=== PATIENT | female | born 1980 | race Caucasian/White ===

== ENCOUNTER 2019-03-02 06:18 | Emergency (ER) | payer OTHER ==
[2019-03-02] MEDS ORDERED: LORazepam 2 MG/ML INJ IM STA (06:23)
[2019-03-02] MEDS ORDERED: ZIPRASIDONE 20 MG VIAL IM STA (06:23)
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
[2019-03-02 06:47] LABS: Appearance,Urine Cloudy (Clear); Bacteria,Urine Moderate /hpf; Bilirubin,Urine Negative (Negative); Blood,Urine Negative (Negative); Color,Urine Yellow; Glucose,Urine (UA) Negative (Negative); Hyaline Casts,Urine 4 /lpf (0-2); Ketones,Urine 1+ (Negative); Leukocyte Esterase,Urine Small (Negative); Mucus,Urine Many /hpf; Nitrite,Urine Positive (Negative); Protein,Urine 1+ (Negative); RBC,Urine 1 /hpf (0-5); Specific Gravity,Urine 1.039 (1.001-1.035); Squamous Epithelial Cell,Urine 2 /hpf (0-4); Urobilinogen,Urine <2.0 mg/dL (<2.0); WBC,Urine 3 /hpf (0-5)
[2019-03-02 07:02] LABS: Amphetamine Screen,Urine Detected (NotDetected); Barbiturate Screen,Urine Not Detected (NotDetected); Benzodiazepines Screen,Urine Detected (NotDetected); Cocaine Screen,Urine Detected (NotDetected); Methadone Screen, Urine Not Detected (NotDetected); Opiate Screen,Urine Not Detected (NotDetected); Oxycodone Screen, Urine Not Detected (NotDetected); Phencyclidine Screen,Urine Not Detected (NotDetected); Tricyclic Antidepressant,Urine Detected (NotDetected); Urn Cannabinoid Scrn Detected (NotDetected)
[2019-03-02 07:06] LABS: Basophils # (A) 0.1 k/uL (0-0.2); Basophils % (A) 1 %; Eosinophils # (A) 0.4 k/uL (0-0.7); Eosinophils % (A) 3 %; HCT 41.7 % (34.0-46.0); Lymphocytes # (A) 4.3 k/uL (1.0-4.8); Lymphocytes % (A) 37 %; MCH 32.6 pg (25.0-35.0); MCHC 33.5 g/dL (31.0-37.0); MCV 97.3 fL (80.0-100.0); Mean Platelet Volume 7.6; Monocytes # (A) 0.8 k/uL (0-1.0); Monocytes % (A) 7 %; Neutrophils # (A) 5.6 k/uL (1.3-7.7); Neutrophils % (A) 49 %; Platelet Count 344 k/uL (150-450); RBC 4.29 m/uL (3.80-5.40); RDW 12.9 % (11.5-15.5); WBC 11.5 k/uL (3.8-10.6)
[2019-03-02 07:35] LABS: ALT 16 U/L (4-34); AST 43 U/L (14-36); African American GFR (CKD) 90 (>60 ml/min/1.73 sqM); Albumin 4.4 g/dL (3.5-5.0); Alcohol <10 mg/dL; Alkaline Phosphatase 62 U/L (38-126); Anion Gap 14 mmol/L; Blood Urea Nitrogen 16 mg/dL (7-17); Calcium 9.4 mg/dL (8.4-10.2); Carbon Dioxide 22 mmol/L (22-30); Chloride 102 mmol/L (98-107); Glucose 122 mg/dL (74-99); Non-African American GFR(CKD) 78 (>60 ml/min/1.73 sqM); Sodium 138 mmol/L (137-145); Total Protein 7.5 g/dL (6.3-8.2)
[2019-03-02 07:44] LABS: Potassium 3.6 mmol/L (3.5-5.1)
[2019-03-02 07:51] VITALS: RESP 16
--- NOTE | 2019-03-02 07:55 | CT ---
EXAMINATION TYPE: CT brain wo con DATE OF EXAM: 03/02/2019 COMPARISON: NONE HISTORY: Altered mental status. Right periorbital contusion. CT DLP: 1070.4 mGycm. Automated Exposure Control for Dose Reduction was Utilized. TECHNIQUE: CT scan of the head is performed without contrast. FINDINGS: There is no acute intracranial hemorrhage, mass effect, or midline shift identified. The ventricles and sulci are within normal limits in size. The globes are intact and the visualized sin uses are clear. Globes are symmetric and intact. Lenses are in place. No measurable hematoma in the p eriorbital region. IMPRESSION: No acute intracranial hemorrhage, mass effect, or midline shift is seen.
[2019-03-02 12:48] VITALS: BP 115/74; PULSE 61; TEMP 97.7
== END 2019-03-02 12:48 | disposition home or self-care (01) ==
LOC: EC 06:18
DX: F19.959 Other psychoactive substance use, unspecified with psychoactive substance-induced psychotic disorder, unspecified (principal); Z79.891 Long term (current) use of opiate analgesic; Z88.8 Allergy status to other drugs, medicaments and biological substances; Z78.1 Physical restraint status
CPT/HCPCS: 36415; 80053; 85025; 81001; 80306; 70450; 99285; 96365; 96366 ×4; 96372 ×2; G0480; J2060; J0696; J3486; 80320

== ENCOUNTER 2020-08-26 15:11 | Emergency (ER) | payer OTHER ==
[2020-08-26 15:33] VITALS: TEMP 98
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
[2020-08-26] MEDS: BACITRACIN OINT 1 EACH PACKET TOPICAL ONE (17:41)
[2020-08-26 18:07] VITALS: BP 102/60; PULSE 82; RESP 16
== END 2020-08-26 17:50 | disposition home or self-care (01) ==
LOC: EC 15:11
DX: F19.950 Other psychoactive substance use, unspecified with psychoactive substance-induced psychotic disorder with delusions (principal); F17.200 Nicotine dependence, unspecified, uncomplicated; F32.9 Major depressive disorder, single episode, unspecified; F12.90 Cannabis use, unspecified, uncomplicated
CPT/HCPCS: 82075; 99284

== ENCOUNTER 2020-09-22 16:56 | Emergency (ER) | payer OTHER ==
[2020-09-22 17:33] VITALS: BP 116/57; PULSE 100; RESP 16; TEMP 99
[2020-09-22] MEDS ORDERED: KETOROLAC 15 MG/ML 1 ML VIAL IM STA (18:07)
[2020-09-22] MEDS ORDERED: AMOXIC-POT CLAV 875MG STARTER PACK 2 TAB BTL PO STA (18:07)
--- NOTE | 2020-09-22 18:48 | XR ---
EXAMINATION TYPE: XR lumbar spine 2 or 3V DATE OF EXAM: 09/22/2020 CLINICAL HISTORY: Pain after fall injury. TECHNIQUE: Frontal and lateral images of the lumbar spine are obtained. COMPARISON: None FINDINGS: There are 5 lumbar type vertebral bodies identified. There is slight grade 1 retrolisthesi s L3 and L4 with more prominent grade 1 anterolisthesis L4 on L5. Vertebral body heights are maintain ed. [id number] multilevel disc space narrowing with relative sparing of L3-L4 level. Facet arth ropathy lower lumbar levels. No acute displaced fracture. Overlying soft tissue is unremarkable. IMPRESSION: As above.
--- NOTE | 2020-09-22 18:55 | ED ---
General Adult HPI - General Chief complaint: Animal Bite Stated complaint: Dog bite Time Seen by Provider: 09/22/20 17:34 Source: patient, RN notes reviewed Mode of arrival: ambulatory Limitations: no limitations - History of Present Illness Initial comments: Patient is a 40-year-old female that comes in complaining of a dog bite to the left foot and lower back pain. She notes she was seen at [facility] yesterday for the dog bite was given Augmentin and an Augmentin prescription. She noted that the x-ray was negative for any bone involvement. Today her main complaint is low back pain with radiation down the left leg. She notes that with a dog bit her older foot admit her fall on her butt. Patient denied any saddle anesthesia bladder or bowel incontinence. She noted that she spoke to her doctor who said that she might need an MRI and told her to come to the ER. She was informed that MRIs to the ER are unlikely and less saddle anesthesia or bladder or bowel issues happened from an acute injury. Patient was in no apparent distress or pain while sitting up. She denied any chest pain shortness of breath headache nausea vomiting diarrhea constipation fever fatigue chills. - Related Data Home Medications Medication Instructions Recorded Confirmed Buprenorphine HCl/Naloxone HCl 1 film SL BID 03/02/19 09/22/20 [Suboxone 8 mg-2 mg Sl Film] Gabapentin 300 - 600 mg PO TID 09/22/20 09/22/20 Naproxen 500 mg PO BID 09/22/20 09/22/20 clonazePAM [KlonoPIN] 0.5 - 1 mg PO DAILY 09/22/20 09/22/20 Previous Rx's Medication Instructions Recorded predniSONE 50 mg PO DAILY #5 tab 09/22/20 Allergies Allergy/AdvReac Type Severity Reaction Status Date / Time haloperidol [From Haldol] AdvReac Rash/Hives Verified 09/22/20 18:18 Review of Systems ROS Statement: Those systems with pertinent positive or pertinent negative responses have been documented in the HPI. ROS Other: All systems not noted in ROS Statement are negative. Past Medical History Past Medical History: No Reported History History of Any Multi-Drug Resistant Organisms: None Reported Past Surgical History: No Surgical Hx Reported, Tubal Ligation Past Psychological History: Bipolar, Depression, Schizophrenia Smoking Status: Current every day smoker Past Alcohol Use History: Occasional Past Drug Use History: Marijuana General Exam Limitations: no limitations General appearance: alert, in no apparent distress Head exam: Present: atraumatic, normocephalic, normal inspection Eye exam: Present: normal appearance, PERRL, EOMI. Absent: scleral icterus, conjunctival injection, periorbital swelling Neck exam: Present: normal inspection Respiratory exam: Present: normal lung sounds bilaterally. Absent: respiratory distress, wheezes, rales, rhonchi, stridor Cardiovascular Exam: Present: regular rate, normal rhythm, normal heart sounds. Absent: systolic murmur, diastolic murmur, rubs, gallop, clicks Extremities exam: Present: normal inspection, full ROM, normal capillary refill, other (Left foot dog bite no signs or symptoms of infection, minimal bruising.). Absent: tenderness, pedal edema, joint swelling, calf tenderness Back exam: Present: normal inspection, tenderness (Over the left SI) Neurological exam: Present: alert, oriented X3 Psychiatric exam: Present: normal affect, normal mood Skin exam: Present: warm, dry, intact, normal color. Absent: rash Course Vital Signs 09/22/20 17:31 Temperature 99 F Pulse Rate 100 Respiratory 16 Rate Blood Pressure 116/57 O2 Sat by Pulse 96 Oximetry Medical Decision Making - Medical Decision Making 40-year-old female complaining of lower back pain. Was seen last night at [place] for dog bite to left foot. X-ray lumbar spine, 15 mg of Toradol ordered. X-rays negative for any acute fractures dislocations. Case discussed with Dr. Walsh, patient can discharge home with follow-up to primary care. - Radiology Data Radiology results: report reviewed, image reviewed Lumbar x-ray: There are 5 lumbar type vertebral bodies identified. There is slight grade 1 retrolisthesis L3 and L4 with more prominent grade 1 anterolisthesis L4 on L5. Vertebral body heights are maintained. Mild to moderate multilevel disc space narrowing with relative sparing of L3-L4 level. Facet arthropathy lower lumbar levels. No acute displaced fracture. Overlying soft tissues unremarkable. Disposition Clinical Impression: Dog bite, Lumbar strain, Sciatica Disposition: HOME SELF-CARE Instructions (If sedation given, give patient instructions): Animal Bite (ED) Additional Instructions: Please return to the Emergency Department if symptoms worsen or any other concerns. Follow-up with primary care in the next several days. Take antibiotics as prescribed until complete. Get prescription filled. Keep areas clean and dry as possible. Is patient prescribed a controlled substance at d/c from ED?: No Referrals: Simone Kohler DO [Primary Care Provider] - 1-2 days Time of Disposition: 18:55
== END 2020-09-22 19:05 | disposition home or self-care (01) ==
LOC: EC 16:56
DX: S39.012A Strain of muscle, fascia and tendon of lower back, initial encounter (principal); M54.42 Lumbago with sciatica, left side; S91.352A Open bite, left foot, initial encounter; F17.200 Nicotine dependence, unspecified, uncomplicated; F12.90 Cannabis use, unspecified, uncomplicated; Z79.1 Long term (current) use of non-steroidal anti-inflammatories (NSAID); Z79.52 Long term (current) use of systemic steroids; Z79.899 Other long term (current) drug therapy; Z88.8 Allergy status to other drugs, medicaments and biological substances; W54.0XXA Bitten by dog, initial encounter
CPT/HCPCS: 72100; 96372; 99283; J1885

== ENCOUNTER 2020-10-31 03:16 | Emergency (ER) | payer OTHER ==
[2020-10-31 03:22] VITALS: BP 115/77; PULSE 83; RESP 20; TEMP 98.3
[2020-10-31 03:59] LABS: Basophils % (A) 0 %; Eosinophils # (A) 0.1 k/uL (0-0.7); Eosinophils % (A) 1 %; HCT 44.3 % (34.0-46.0); HGB 14.5 gm/dL (11.4-16.0); Lymphocytes % (A) 15 %; MCH 32.7 pg (25.0-35.0); MCHC 32.8 g/dL (31.0-37.0); MCV 99.9 fL (80.0-100.0); Monocytes # (A) 0.6 k/uL (0-1.0); Monocytes % (A) 4 %; Neutrophils # (A) 10.1 k/uL (1.3-7.7); Neutrophils % (A) 78 %; Platelet Count 303 k/uL (150-450); RBC 4.44 m/uL (3.80-5.40); RDW 13.5 % (11.5-15.5); WBC 12.9 k/uL (3.8-10.6)
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
--- NOTE | 2020-10-31 04:12 | XR ---
EXAMINATION TYPE: XR chest 2V DATE OF EXAM: 10/31/2020 COMPARISON: NONE HISTORY: Chest pain TECHNIQUE: 2 views FINDINGS: Heart and mediastinum are normal. Lungs are clear. Diaphragm is normal. Bony thorax appears normal. IMPRESSION: Normal chest
[2020-10-31 04:17] LABS: ALT 13 U/L (4-34); AST 25 U/L (14-36); African American GFR (CKD) >90 (>60 ml/min/1.73 sqM); Albumin 4.3 g/dL (3.5-5.0); Alkaline Phosphatase 52 U/L (38-126); Anion Gap 7 mmol/L; Blood Urea Nitrogen 15 mg/dL (7-17); Calcium 9.3 mg/dL (8.4-10.2); Carbon Dioxide 23 mmol/L (22-30); Chloride 106 mmol/L (98-107); Glucose 91 mg/dL (74-99); Non-African American GFR(CKD) >90 (>60 ml/min/1.73 sqM); Sodium 136 mmol/L (137-145); Total Bilirubin 0.5 mg/dL (0.2-1.3); Total Protein 6.8 g/dL (6.3-8.2)
[2020-10-31 04:33] LABS: Appearance,Urine Cloudy (Clear); Bacteria,Urine Rare /hpf; Bilirubin,Urine Negative (Negative); Blood,Urine Negative (Negative); Color,Urine Yellow; Glucose,Urine (UA) Negative (Negative); Hyaline Casts,Urine 5 /lpf (0-2); Ketones,Urine 1+ (Negative); Leukocyte Esterase,Urine Negative (Negative); Mucus,Urine Many /hpf; Nitrite,Urine Negative (Negative); Protein,Urine 1+ (Negative); RBC,Urine 1 /hpf (0-5); Specific Gravity,Urine 1.038 (1.001-1.035); Squamous Epithelial Cell,Urine 9 /hpf (0-4); WBC,Urine <1 /hpf (0-5)
[2020-10-31 06:18] LABS: Amphetamine Screen,Urine Not Detected (NotDetected); Barbiturate Screen,Urine Not Detected (NotDetected); Benzodiazepines Screen,Urine Detected (NotDetected); Cocaine Screen,Urine Detected (NotDetected); Methadone Screen, Urine Not Detected (NotDetected); Opiate Screen,Urine Not Detected (NotDetected); Oxycodone Screen, Urine Not Detected (NotDetected); Phencyclidine Screen,Urine Not Detected (NotDetected); Tricyclic Antidepressant,Urine Not Detected (NotDetected); Urn Cannabinoid Scrn Detected (NotDetected)
== END 2020-10-31 07:00 | disposition home or self-care (01) ==
LOC: EC 03:16
DX: F41.9 Anxiety disorder, unspecified (principal); R07.89 Other chest pain; T74.21XA Adult sexual abuse, confirmed, initial encounter; J45.909 Unspecified asthma, uncomplicated; F31.9 Bipolar disorder, unspecified; F17.200 Nicotine dependence, unspecified, uncomplicated; F12.90 Cannabis use, unspecified, uncomplicated
CPT/HCPCS: 36415; 71046; 80053; 80306; 81001; 81025; 84484; 85025; 93005; 99285

== ENCOUNTER 2020-12-20 22:54 | Inpatient (IN) | payer MEDICAID, OTHER ==
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
[2020-12-21] MEDS ORDERED: ACETAMINOPHEN TAB 325 MG TAB PO STA (03:11)
[2020-12-21] MEDS ORDERED: LORATADINE 10 MG TAB PO STA (03:16)
[2020-12-21 05:39] LABS: Amphetamine Screen,Urine Not Detected (NotDetected); Barbiturate Screen,Urine Not Detected (NotDetected); Benzodiazepines Screen,Urine Detected (NotDetected); Cocaine Screen,Urine Detected (NotDetected); Methadone Screen, Urine Not Detected (NotDetected); Opiate Screen,Urine Not Detected (NotDetected); Oxycodone Screen, Urine Not Detected (NotDetected); Phencyclidine Screen,Urine Not Detected (NotDetected); Tricyclic Antidepressant,Urine Not Detected (NotDetected); Urn Cannabinoid Scrn Detected (NotDetected)
[2020-12-21] MEDS ORDERED: MAG HYDROX/AL HYDROX/SIMETH 30 ML CUP PO PRN (08:31)
[2020-12-21] MEDS ORDERED: LORazepam 1 MG TAB PO PRN (08:31)
[2020-12-21] MEDS ORDERED: LORazepam 2 MG/ML INJ IM PRN (08:34)
[2020-12-21] MEDS ORDERED: HALOPERIDOL LACTATE 5 MG/ML 1 ML VIAL IM PRN (08:34)
[2020-12-21] MEDS: NICOTINE 14MG/24HR PATCH TRANSDERM SCH (09:19)
[2020-12-21] MEDS: NAPROXEN 250 MG TAB PO SCH ×3 (09:19→20:58)
[2020-12-21] MEDS: haloperidoL 5 MG TAB PO PRN (09:19)
[2020-12-21] MEDS: clonazePAM 0.5 MG TAB PO SCH (09:19)
[2020-12-21] MEDS: GABAPENTIN 300 MG CAP PO SCH ×5 (09:19→22:18)
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
[2020-12-21] MEDS: ARIPiprazole 5 MG TAB PO SCH (14:56)
[2020-12-21] MEDS: traZODone HCL 50 MG TAB PO SCH (22:12)
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
[2020-12-22 06:20] LABS: Basophils # (A) 0.1 k/uL (0-0.2); Basophils % (A) 1 %; Eosinophils # (A) 0.4 k/uL (0-0.7); Eosinophils % (A) 5 %; Lymphocytes # (A) 3.5 k/uL (1.0-4.8); Lymphocytes % (A) 51 %; MCH 32.4 pg (25.0-35.0); MCHC 32.6 g/dL (31.0-37.0); MCV 99.3 fL (80.0-100.0); Mean Platelet Volume 6.8; Monocytes # (A) 0.4 k/uL (0-1.0); Monocytes % (A) 6 %; Neutrophils # (A) 2.5 k/uL (1.3-7.7); Neutrophils % (A) 36 %; Platelet Count 338 k/uL (150-450); RBC 4.03 m/uL (3.80-5.40); RDW 12.3 % (11.5-15.5)
[2020-12-22 06:31] LABS: ALT 12 U/L (4-34); AST 20 U/L (14-36); African American GFR (CKD) >90 (>60 ml/min/1.73 sqM); Albumin 3.5 g/dL (3.5-5.0); Alkaline Phosphatase 46 U/L (38-126); Anion Gap 7 mmol/L; Blood Urea Nitrogen 13 mg/dL (7-17); Calcium 9.1 mg/dL (8.4-10.2); Carbon Dioxide 24 mmol/L (22-30); Chloride 106 mmol/L (98-107); Glucose 88 mg/dL (74-99); Non-African American GFR(CKD) >90 (>60 ml/min/1.73 sqM); Potassium 4.2 mmol/L (3.5-5.1); Sodium 137 mmol/L (137-145); Total Bilirubin 0.3 mg/dL (0.2-1.3)
[2020-12-22] MEDS: NAPROXEN 250 MG TAB PO SCH ×3 (08:50→21:10)
[2020-12-22] MEDS: NICOTINE 14MG/24HR PATCH TRANSDERM SCH (08:50)
[2020-12-22] MEDS: ARIPiprazole 5 MG TAB PO SCH (08:50)
[2020-12-22] MEDS: clonazePAM 0.5 MG TAB PO SCH (08:53)
[2020-12-22] MEDS: GABAPENTIN 300 MG CAP PO SCH ×3 (08:54→21:10)
[2020-12-22] MEDS: LORATADINE 10 MG TAB PO PRN (12:03)
[2020-12-22] MEDS: haloperidoL 5 MG TAB PO PRN ×2 (12:11→20:48)
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
[2020-12-22 13:45] LABS: LDL Cholesterol,Calculated 75.6 mg/dL (0.0-131.0)
[2020-12-22] MEDS: MAGNESIUM HYDROXIDE 2,400 MG/10 ML CUP PO PRN (16:16)
[2020-12-22] MEDS: traZODone HCL 50 MG TAB PO SCH (21:37)
[2020-12-23] MEDS: NICOTINE 14MG/24HR PATCH TRANSDERM SCH (07:50)
[2020-12-23] MEDS: NAPROXEN 250 MG TAB PO SCH ×3 (08:39→20:58)
[2020-12-23] MEDS: ARIPiprazole 5 MG TAB PO SCH (08:40)
[2020-12-23] MEDS: GABAPENTIN 300 MG CAP PO SCH ×3 (08:40→20:58)
[2020-12-23] MEDS: clonazePAM 0.5 MG TAB PO SCH (08:40)
[2020-12-23] MEDS: DOCUSATE 100 MG CAP PO SCH (08:40)
[2020-12-23] MEDS: LORATADINE 10 MG TAB PO PRN (08:40)
[2020-12-23] MEDS: haloperidoL 5 MG TAB PO PRN ×2 (12:50→21:53)
--- NOTE | 2020-12-23 14:33 | P.PN ---
Progress Note - Text Progress Note Date: 12/23/20 Clinical Problems: Bipolar disorder current episode manic, opiate use disorder, alcohol use disorder, cocaine use disorder, cannabis use disorder, tobacco use Interim history: I reviewed the medical record, interviewed the patient and discussed her treatment and treatment plan during team meeting. She was again somatically preoccupied and complained of hip pain, congestion, tooth pain and urinary tract infection. She requested a prescription for antibiotic for tooth pain and the urinary tract infection. She is more irritable than on the last encounter. She complained that her needs are not being addressed on the unit and she expects to to meet with an interest on a daily basis. She does not believe this hospitalization is justified and feels that she is mistreated by the mental health system. She again minimizes circumstances that led to this hospitalization and denied that she threatened to kill her daughter's boyfriend or attempted suicide. Nursing reported that she broke a tooth without eating hard candy last night. Since her admission to unit she has posed no management problems and had no episodes of behavioral dyscontrol. She has been attending therapeutic groups and activities. She slept 7 hours last night. Mental status exam: She presented as a casually groomed middle-aged female who was pleasant on approach. She made eye contact and appeared to attend to the interview. She had a blunted facial expression. She had psychomotor retardation but no abnormal involuntary movements. Her speech was spontaneous with normal rate and rhythm. Her affect was irritable. She denied suicidal ideation and wishes. She denied homicidal ideation. She denied feeling hopeless, helpless or worthless. She ruminated about her medical problems but did not express clear ideas reference, paranoid ideation or delusions. Her thinking was concrete but his associations were organized and goal directed. She denied hallucinations did not appear to be responding to internal stimuli. Assessment: She is much less irritable, angry and restless and admission. I suspect that her presentation may be related to substance abuse issues. Plan: continue inpatient treatment. Safety precautions. Probate hearing scheduled for 12/27/2020. Continue Abilify 5 mg daily Klonopin 0.5 mg daily, Neurontin 600 mg 3 times a day, and Desyrel 150mg bedtime. Habitrol for smoking cessation. Urine for culture and sensitivity. Haldol and Ativan when necessary for agitation or aggression. Encourage continued participation in therapeutic groups and activities. Evaluate clinical status response to treatment daily basis.
[2020-12-23 16:02] LABS: Appearance,Urine Clear (Clear); Bilirubin,Urine Negative (Negative); Blood,Urine Negative (Negative); Color,Urine Light Yellow; Glucose,Urine (UA) Negative (Negative); Ketones,Urine Negative (Negative); Leukocyte Esterase,Urine Negative (Negative); Nitrite,Urine Negative (Negative); Protein,Urine Negative (Negative); Specific Gravity,Urine 1.014 (1.001-1.035); Urobilinogen,Urine <2.0 mg/dL (<2.0)
[2020-12-23] MEDS: traZODone HCL 50 MG TAB PO SCH (22:43)
[2020-12-24] MEDS: haloperidoL 5 MG TAB PO PRN (08:46)
[2020-12-24] MEDS: NICOTINE 14MG/24HR PATCH TRANSDERM SCH (08:46)
[2020-12-24] MEDS: GABAPENTIN 300 MG CAP PO SCH ×3 (08:46→21:54)
[2020-12-24] MEDS: NAPROXEN 250 MG TAB PO SCH (08:46)
[2020-12-24] MEDS: clonazePAM 0.5 MG TAB PO SCH (08:47)
[2020-12-24] MEDS: ARIPiprazole 5 MG TAB PO SCH (08:47)
[2020-12-24] MEDS: DOCUSATE 100 MG CAP PO SCH (08:47)
[2020-12-24] MEDS ORDERED: IBUPROFEN 800 MG TAB PO PRN (11:13)
[2020-12-24] MEDS ORDERED: IBUPROFEN 600 MG TAB PO PRN (13:09)
[2020-12-24] MEDS: ACETAMINOPHEN TAB 325 MG TAB PO PRN ×2 (15:47→21:57)
--- NOTE | 2020-12-24 16:46 | P.PN ---
Progress Note - Text Progress Note Date: 12/24/20 Clinical Problems: Bipolar disorder current episode manic, opiate use disorder, alcohol use disorder, cocaine use disorder, cannabis use disorder, tobacco use Interim history: I reviewed the medical record and interviewed the patient. She remains somatically preoccupied and complained of hip and back pain. She requested a wheelchair or walker. Requested additional medications for pain and agreed to Motrin alfredo her admission to unit she has posed no management problems and had no episodes of behavioral dyscontrol. She intermittently attends therapeutic groups and activities. She slept 7 hours last night. Her graft UA was negative for protein, blood and ketones. Mental status exam: She presented as a casually groomed middle-aged female who was pleasant on approach. She made eye contact and appeared to attend to the interview. She had a blunted facial expression. She had psychomotor retardation but no abnormal involuntary movements. Her speech was spontaneous with normal rate and rhythm. Her affect was not irritable. She denied suicidal ideation and wishes. She denied homicidal ideation. She denied feeling hopeless, helpless or worthless. She ruminated about her medical problems but did not express clear ideas reference, paranoid ideation or de lusions. Her thinking was concrete but his associations were organized and goal directed. She denied hallucinations did not appear to be responding to internal stimuli. Assessment: She is much less irritable, angry and restless and admission. She remains somatically preoccupied and is complaining of increasing pain symptoms. Plan: continue inpatient treatment. Safety precautions. Probate hearing scheduled for 12/27/2020. Continue Abilify 5 mg daily Klonopin 0.5 mg daily, Neurontin 600 mg 3 times a day, and Desyrel 150mg bedtime. Habitrol for smoking cessation. Continue naproxen Motrin 800 mg 3 times a day when necessary for pain. 5% lidocaine patch to lower back. Haldol and Ativan when necessary for agitation or aggression. Encourage continued participation in therapeutic grou ps and activities. Evaluate clinical status response to treatment daily basis.
[2020-12-24] MEDS: IBUPROFEN 600 MG TAB PO PRN (17:03)
[2020-12-24] MEDS: LORazepam 1 MG TAB PO PRN (19:59)
[2020-12-24] MEDS: traZODone HCL 50 MG TAB PO SCH (21:55)
[2020-12-25] MEDS: NICOTINE 14MG/24HR PATCH TRANSDERM SCH (08:00)
[2020-12-25] MEDS: ARIPiprazole 5 MG TAB PO SCH (08:01)
[2020-12-25] MEDS: GABAPENTIN 300 MG CAP PO SCH ×3 (08:01→20:21)
[2020-12-25] MEDS: clonazePAM 0.5 MG TAB PO SCH (08:01)
[2020-12-25] MEDS: DOCUSATE 100 MG CAP PO SCH (08:01)
[2020-12-25] MEDS: LIDOCAINE 5% PATCH TOPICAL SCH (08:02)
[2020-12-25] MEDS: IBUPROFEN 600 MG TAB PO PRN ×2 (08:35→16:19)
[2020-12-25] MEDS: ACETAMINOPHEN TAB 325 MG TAB PO PRN (11:47)
--- NOTE | 2020-12-25 15:13 | P.PN ---
Progress Note - Text Progress Note Date: 12/25/20 Clinical Problems: Bipolar disorder current episode manic, opiate use disorder severe, alcohol use disorder, cocaine use disorder, cannabis use disorder, tobacco use Interim history: I reviewed the medical record and interviewed the patient. She was less somatically preoccupied, irritable and demanding than on prior encounters. She continued playing of leg and hip pain but did not perseverate on being unable to walk, needing a wheelchair or needing opiate pain medications. We again discussed the need for her to reenroll with a Suboxone provider after she is discharged. She has posed no management problems and had no episodes of behavioral dyscontrol. She intermittently attends therapeutic groups and activities. She slept 7 hours last night. Mental status exam: She presented as a casually groomed middle-aged female who was pleasant on approach. She made eye contact and appeared to attend to the interview. She had a blunted facial expression. She had psychomotor retardation but no abnormal involuntary movements. Her speech was spontaneous with normal rate and rhythm. Her affect was not irritable. She denied suicidal ideation and wishes. She denied homicidal ideation. She denied feeling hopeless, helpless or worthless. She ruminated about her medical problems but did not express clear ideas reference, paranoid ideation or delusions. Her thinking was concrete but his associations were organized and goal directed. She denied hallucinations did not appear to be responding to internal stimuli. Assessment: She is much less irritable, angry and restless and admission. She is less somatically preoccupied. Plan: continue inpatient treatment. Safety precautions. Probate hearing scheduled for 12/27/2020. Continue Abilify 5 mg daily Klonopin 0.5 mg daily, Neurontin 600 mg 3 times a day, and Desyrel 150mg bedtime. Habitrol for smoking cessation. Continue naproxen Motrin 800 mg 3 times a day when necessary for pain. 5% lidocaine patch to lower back. Haldol and Ativan when necessary for agitation or aggression. Encourage continued participation in therapeutic groups and activities. Evaluate clinical status response to treatment daily basis.
[2020-12-25] MEDS: MAGNESIUM HYDROXIDE 2,400 MG/10 ML CUP PO PRN ×2 (16:18→21:11)
[2020-12-25] MEDS: haloperidoL 5 MG TAB PO PRN (16:26)
[2020-12-25] MEDS: traZODone HCL 50 MG TAB PO SCH (20:21)
[2020-12-25] MEDS: LORazepam 1 MG TAB PO PRN (20:21)
[2020-12-26 06:48] VITALS: RESP 20; TEMP 98.6
[2020-12-26] MEDS: LORATADINE 10 MG TAB PO PRN ×2 (07:53→21:30)
[2020-12-26] MEDS: ARIPiprazole 5 MG TAB PO SCH (07:53)
[2020-12-26] MEDS: DOCUSATE 100 MG CAP PO SCH (07:53)
[2020-12-26] MEDS: NICOTINE 14MG/24HR PATCH TRANSDERM SCH (07:53)
[2020-12-26] MEDS: ACETAMINOPHEN TAB 325 MG TAB PO PRN ×2 (07:55→15:43)
[2020-12-26] MEDS: GABAPENTIN 300 MG CAP PO SCH ×3 (08:34→21:31)
[2020-12-26] MEDS: clonazePAM 0.5 MG TAB PO SCH (08:34)
[2020-12-26] MEDS: LIDOCAINE 5% PATCH TOPICAL SCH (08:36)
[2020-12-26] MEDS ORDERED: ARIPiprazole 5 MG TAB PO ONE (10:00)
[2020-12-26] MEDS: IBUPROFEN 600 MG TAB PO PRN ×2 (10:13→19:01)
--- NOTE | 2020-12-26 10:17 | P.PN ---
Progress Note - Text Progress Note Date: 12/26/20 Interval History: Patient was seen taking part in group this morning and was directable and agre eable to speak with telegraphic typewriter operator in the office. Patient appears to be more directable during conversation and cooperative. She claims that she understands the need for her medications and states that she does not want to go through court tomorrow. She claims that she would rather meet with her commonwealth attorney and sign the waive and stip. She claims that her mood is been gradually improving. She claims that she does have episodes of agitation when she speaks over the phone for somebody from back home and required Haldol and Ativan yesterday. She spoke about some stressors at home including her son being in trouble. She is not endorsing any delusions today. She states that she has been going to groups and participating as best as she can. She is agreeable to have her Abilify increased. She states that she is able to sleep fairly at nighttime with the trazodone. She is denying any akathisia at this time. " Her appetite. She claims that her mood has been improving and is denying any anxiety at this time. He did ask for an increase in her Klonopin during the day. At this time patient denies any suicidal or homical ideations, intent or plan. Patient denies any auditory, visual hallucinations and denies any paranoia or delusions. Patient denies any side effects from the medications and has been compliant with meds. Mental Status Exam: General Appearance: Patient appears to be thin, stated age is alert, directable, and cooperative. Improved hygiene and grooming. Behavior: Patient is calmly seated without any agitated behavior. Speech: Patient's speech is fluent and nonpressured. Mood/Affect: Mood is improving mildly, affect is congruent Suicidality/Homicidality: Patient denies having any suicidal or homicidal ideation intent or plan. Perceptions: Patient denies any visual hallucinations and denies any auditory hallucinations Though content/process: There is no evidence of any delusional thought content and thought process is linear and goal-directed. Memory and concentration: AOX3, grossly intact for the purposes of this session Judgment and insight: Poor yet Improving mildly Assessment Bipolar disorder, current episode manic cocain abuse cannabis abuse nicotine dependence Plan: -Patient continues to meet criteria for inpatient psychiatric admission for symptom stabilization and safety. Patient has signed medication consent and was placed in patient's chart. -Medications: Increased Abilify to 7.5 mg daily for psychosis/mood stabilization. Continue with trazodone 150 mg daily at bedtime for insomnia/mood. Increase Klonopin to 0.5 mg daily +0.5 mg at 2 PM for anxiety. -When necessary Ativan and Haldol for agitation/aggression. -NRT - nicotine patch -SW on board for discharge planning. Encouraged the patient to participate in milieu. Currently awaiting court date set for tomorrow. Patient is agreeable to sign a waive and stip with her commonwealth attorney today, we will contact commonwealth attorney to help facilitate this. likely discharge tomorrow back home or saturday.
[2020-12-26] MEDS ORDERED: clonazePAM 0.5 MG TAB PO SCH (14:00)
[2020-12-26] MEDS: guaiFENesin SYRUP 100MG/5ML 200 MG/10 ML CUP PO PRN ×2 (17:18→23:02)
[2020-12-26] MEDS: traZODone HCL 50 MG TAB PO SCH (22:53)
[2020-12-26] MEDS: MAGNESIUM HYDROXIDE 2,400 MG/10 ML CUP PO PRN (22:56)
[2020-12-27] MEDS: guaiFENesin SYRUP 100MG/5ML 200 MG/10 ML CUP PO PRN ×2 (06:16→12:42)
[2020-12-27] MEDS: ACETAMINOPHEN TAB 325 MG TAB PO PRN (06:16)
[2020-12-27 06:18] VITALS: BP 112/54; PULSE 100
[2020-12-27] MEDS: IBUPROFEN 600 MG TAB PO PRN (07:31)
[2020-12-27] MEDS: GABAPENTIN 300 MG CAP PO SCH (07:34)
[2020-12-27] MEDS: DOCUSATE 100 MG CAP PO SCH (07:34)
[2020-12-27] MEDS: clonazePAM 0.5 MG TAB PO SCH (07:34)
[2020-12-27] MEDS: NICOTINE 14MG/24HR PATCH TRANSDERM SCH (07:35)
[2020-12-27] MEDS: LORATADINE 10 MG TAB PO PRN (07:36)
[2020-12-27] MEDS: LIDOCAINE 5% PATCH TOPICAL SCH (07:39)
[2020-12-27] MEDS ORDERED: ARIPiprazole 5 MG TAB PO SCH (09:00)
--- NOTE | 2020-12-27 09:43 | P.DS ---
Providers Date of admission: 12/21/20 08:30 Expected date of discharge: 12/27/20 Attending physician: Scottie Tomas MD Consults: 12/21/20 08:31 Consult Physician Routine Consulting Provider: Soheila Gandhi Consult Reason/Comments: H and P Do you want consulting provider notified?: Yes Primary care physician: Simone Kohler - Discharge Diagnosis(es) (1) Bipolar disorder, manic Current Visit: Yes Status: Acute Priority: High (2) Cocaine abuse Current Visit: Yes Status: Acute Priority: High (3) Cannabis abuse Current Visit: Yes Status: Acute Priority: Medium (4) Nicotine dependence Current Visit: Yes Status: Acute Priority: Low Hospital Course: Admission HPI: Admission note was completed by newswriter "Patient is a 40-year-old female who currently has 4 kids and 6 grandchildren. She currently stays in different houses between [place] and [facility]. 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 Patient presented to the hospital yesterday for agitation and apparently was getting into a altercation with a family member at home. Patient had to receive several IM doses for aggression and agitation in the ER prior to being admitted. She is currently on a deferral from her last psychiatric hospitalization at [facility] over a week ago. Patient states that she came to the hospital because she wants her "meds tweaked" and states that she feels that they're not helping her. She claims that she received a dose of Invega Sustenna while she was at the previous hospital. She claims that she has been having racing thoughts and that he is doing "sign language to people" and states that she can follow up with her doctor and is confused as to where she needs to go. She states that she went to [facility]. She states she feels the medications are not helping her. She is fairly talkative, tangential and circumstantial during conversation. She was loosening associations at times. She states that she has a history of manic episodes in the past. She had a urine drug screen which is positive for benzodiazepines cocaine and marijuana. She states that her sleep has been "on and off" and also appetite is fair. Patient denies any current suicidal or homicidal ideations intent or plan. At this time patient denies any auditory or visual hallucinations. She admits to using cocaine recreationally and marijuana daily. She also admits to using alcohol occasionally. She claims that she smokes cigarettes daily." Hospital course: Upon admission to the unit patient was initially bizarre, hyperverbal/pressured and impulsive. Patient was however already on a deferral and a demand for hearing was filed. Patient ended up signing a waive and stip on day of discharge and agreeable to be on the mental health treatment order. Patient initially received several PRN medications for agitation and aggression in the ER however with treatment she got along well with other patients on the unit and followed unit protocol. Patient was compliant with the medications and denied any side effects throughout hospital course. Patient was started on Abilify and titrated up to a dose of 10 mg daily for psychosis/mood stabilization. Patient also got started on trazodone 150 mg daily at bedtime for insomnia/mood. She was also started on Klonopin 0.5 mg daily +0.5 mg at 2 PM for anxiety. Patient spoke of her stressors and engaged in therapy both group and individual. Patient was also seen by medical team for history and physical exam. Throughout the course of the hospitalization patient gradually improved with regards to mood lability, aggression/behvr, anxiety, sleep and became more future oriented with improved insight and judgment. On the day of discharge patient denied any suicidal or homicidal ideations intent or plan denied any auditory or visual hallucinations. Patient endorsed wanting to live for her children and her future. The patient denied any access to guns or weapons. Patient denied any paranoia and did not endorse any delusions. Patient does have a significant history of substance abuse and was counseled on abstaining from all substances including alcohol and marijuana. Patient was offered however declined inpatient substance-abuse rehab. Patient elected to do outpatient substance use treatment program through [facility]. Patient was also counseled on the medications and need for regular compliance and was encouraged to follow-up with their outpatient appointment for mental health and also for primary care. Prior to discharge a family meeting will be arranged by group social worker to answer any questions and ensure safety upon discharge. Mental status exam: General Appearance: Patient appears to be stated age is alert, pleasant, and cooperative. Patient is in no acute distress and has improved hygiene and grooming Behavior: Patient is calmly seated without any agitated behavior. Speech: Patient's speech is fluent and nonpressured. Mood/Affect: Patient reports their mood is "good", affect is congruent and euthymic. Suicidality/Homicidality: Patient denies having any suicidal or homicidal ideation intent or plan. Perceptions: Patient denies any auditory or visual hallucinations. Though content/process: There is no evidence of any delusional thought content and thought process is linear and goal-directed. Memory and concentration: AOX3, grossly intact for the purposes of this session. Can spell "WORLD" backwards correctly. Judgment and insight: chronically poor, however has improved with guarded prognosis Impression: Bipolar disorder, current episode manic Cocaine abuse Cannabis abuse Nicotine dependence Plan: -Continue with discharge today as patient has improved and stabilized psychiatrically and is not currently an imminent threat to herself and/or others. Patient will remain at chronically elevated risk for harm to self and/or others due to his impulsivity and polysubstance abuse. -Continue medications: Abilify 10 mg daily for psychosis/mood stabilization. Trazodone 150 mg daily at bedtime for insomnia/mood. Klonopin 0.5 mg daily +0.5 mg at 2 PM for anxiety. -Patient was counseled on the need for medication compliance and appropriate follow-up at mental health and also primary care for medical issues. Patient verbalized understanding and agreed. -Social work to arrange for and conduct family meeting to ensure safety upon discharge and answer any questions/concerns. Social work also to arrange for patients follow up appointments with [facility] for psychiatric care along with follow up with primary care provider. -Patient counseled on abstaining from recreational drugs and marijuana and alcohol. Was informed/educated on the adverse effects on their physical and mental health. Patient verbally agreed and understood. Patient was offered substance abuse treatment however declined at this time. -Patient is now currently on active treatment order through [facility]. -Patient was instructed to return to the hospital or seek immediate medical care if their psychiatric or medical symptoms do worsen or reoccur. Allergies Allergy/AdvReac Type Severity Reaction Status Date / Time haloperidol [From Haldol] AdvReac Confusion Verified 12/22/20 21:27 Laboratory Results WBC 7.0 k/uL (3.8-10.6) 12/22/20 05:33 RBC 4.03 m/uL (3.80-5.40) 12/22/20 05:33 Hgb 13.0 gm/dL (11.4-16.0) 12/22/20 05:33 Hct 40.0 % (34.0-46.0) 12/22/20 05:33 MCV 99.3 fL (80.0-100.0) 12/22/20 05:33 MCH 32.4 pg (25.0-35.0) 12/22/20 05:33 MCHC 32.6 g/dL (31.0-37.0) 12/22/20 05:33 RDW 12.3 % (11.5-15.5) 12/22/20 05:33 Plt Count 338 k/uL (150-450) 12/22/20 05:33 MPV 6.8 12/22/20 05:33 Neutrophils % 36 % 12/22/20 05:33 Lymphocytes % 51 % 12/22/20 05:33 Monocytes % 6 % 12/22/20 05:33 Eosinophils % 5 % 12/22/20 05:33 Basophils % 1 % 12/22/20 05:33 Neutrophils # 2.5 k/uL (1.3-7.7) 12/22/20 05:33 Lymphocytes # 3.5 k/uL (1.0-4.8) 12/22/20 05:33 Monocytes # 0.4 k/uL (0-1.0) 12/22/20 05:33 Eosinophils # 0.4 k/uL (0-0.7) 12/22/20 05:33 Basophils # 0.1 k/uL (0-0.2) 12/22/20 05:33 Sodium 137 mmol/L (137-145) 12/22/20 05:33 Potassium 4.2 mmol/L (3.5-5.1) 12/22/20 05:33 Chloride 106 mmol/L (98-107) 12/22/20 05:33 Carbon Dioxide 24 mmol/L (22-30) 12/22/20 05:33 Anion Gap 7 mmol/L 12/22/20 05:33 BUN 13 mg/dL (7-17) 12/22/20 05:33 Creatinine 0.57 mg/dL (0.52-1.04) 12/22/20 05:33 Est GFR (CKD-EPI)AfAm >90 (>60 ml/min/1.73 sqM) 12/22/20 05:33 Est GFR (CKD-EPI)NonAf >90 (>60 ml/min/1.73 sqM) 12/22/20 05:33 Glucose 88 mg/dL (74-99) 12/22/20 05:[address] Glu mg/dL 111 12/22/20 05:33 Hemoglobin A1c 5.5 % (4.0-6.0) 12/22/20 05:33 Calcium 9.1 mg/dL (8.4-10.2) 12/22/20 05:33 Total Bilirubin 0.3 mg/dL (0.2-1.3) 12/22/20 05:33 AST 20 U/L (14-36) 12/22/20 05:33 ALT 12 U/L (4-34) 12/22/20 05:33 Alkaline Phosphatase 46 U/L (38-126) 12/22/20 05:33 Total Protein 6.0 g/dL (6.3-8.2) L 12/22/20 05:33 Albumin 3.5 g/dL (3.5-5.0) 12/22/20 05:33 Triglycerides 148.00 mg/dL (0.00-149.00) 12/22/20 05:33 Cholesterol 167.00 mg/dL (0.00-200.00) 12/22/20 05:33 LDL Cholesterol, Calc 75.6 mg/dL (0.0-131.0) 12/22/20 05:33 VLDL Cholesterol, Calc 29.60 mg/dL (5.00-40.00) 12/22/20 05:33 HDL Cholesterol 61.80 mg/dL (40.00-60.00) H 12/22/20 05:33 Cholesterol/HDL Ratio 2.70 Ratio 12/22/20 05:33 TSH 3.030 mIU/L (0.465-4.680) 12/22/20 05:33 Urine Color Light Yellow 12/23/20 15:47 Urine Appearance Clear (Clear) 12/23/20 15:47 Urine pH 7.0 (5.0-8.0) 12/23/20 15:47 Ur Specific [place] 1.014 (1.001-1.035) 12/23/20 15:47 Urine Protein Negative (Negative) 12/23/20 15:47 Urine Glucose (UA) Negative (Negative) 12/23/20 15:47 Urine Ketones Negative (Negative) 12/23/20 15:47 Urine Blood Negative (Negative) 12/23/20 15:47 Urine Nitrite Negative (Negative) 12/23/20 15:47 Urine Bilirubin Negative (Negative) 12/23/20 15:47 Urine Urobilinogen <2.0 mg/dL (<2.0) 12/23/20 15:47 Ur Leukocyte Esterase Negative (Negative) 12/23/20 15:47 Urine Opiates Screen Not Detected (NotDetected) 12/21/20 04:39 Ur Oxycodone Screen Not Detected (NotDetected) 12/21/20 04:39 Urine Methadone Screen Not Detected (NotDetected) 12/21/20 04:39 Ur Propoxyphene Screen Not Detected (NotDetected) 12/21/20 04:39 Ur Barbiturates Screen Not Detected (NotDetected) 12/21/20 04:39 U Tricyclic Antidepress Not Detected (NotDetected) 12/21/20 04:39 Ur Phencyclidine Scrn Not Detected (NotDetected) 12/21/20 04:39 Ur Amphetamines Screen Not Detected (NotDetected) 12/21/20 04:39 U Methamphetamines Scrn Not Detected (NotDetected) 12/21/20 04:39 U Benzodiazepines Scrn Detected (NotDetected) H 12/21/20 04:39 Urine Cocaine Screen Detected (NotDetected) H 12/21/20 04:39 U Marijuana (THC) Screen Detected (NotDetected) H 12/21/20 04:39 Coronavirus (PCR) Not Detected (Not Detectd) 12/21/20 07:10 Vital Signs Temp 98.6 F 12/26/20 06:47 Pulse 100 12/27/20 06:18 Resp 20 12/27/20 06:18 BP 112/54 12/27/20 06:18 Pulse Ox 97 12/21/20 20:17 Patient Condition at Discharge: Stable Plan - Discharge Summary Discharge Rx Participant: No New Discharge Prescriptions: New ARIPiprazole [Abilify] 10 mg PO DAILY 30 Days tab Loratadine [Claritin] 10 mg PO DAILY 30 Days tab Nicotine 14Mg/24Hr Patch [Habitrol] 1 patch TRANSDERM DAILY 14 Days patch Lidocaine 5% Patch [Lidoderm 5% Patch] 1 patch TOPICAL DAILY 30 Days patch Ibuprofen [Motrin] 800 mg PO TID PRN 30 Days tab PRN Reason: pain guaiFENesin SYRUP 100MG/5ML [Robitussin] 200 mg PO Q6HR PRN #1 ml PRN Reason: Cough Docusate [Colace] 100 mg PO DAILY 30 Days cap traZODone HCL [Desyrel] 150 mg PO HS 30 Days tab clonazePAM [KlonoPIN] 0.5 mg PO 1400 14 Days #14 tab clonazePAM [KlonoPIN] 0.5 mg PO DAILY 14 Days #14 tab Gabapentin [Neurontin] 600 mg PO TID 14 Days #84 cap Acetaminophen Tab [Tylenol] 650 mg PO Q6HR PRN tab PRN Reason: Fever And/ Or Pain Continue Buprenorphine HCl/Naloxone HCl [Suboxone 8 mg-2 mg Sl Film] 1 film SL BID Discontinued clonazePAM [KlonoPIN] 0.5 - 1 mg PO DAILY Naproxen 500 mg PO BID predniSONE 50 mg PO DAILY #5 tab Gabapentin 300 - 600 mg PO TID Discharge Medication List Buprenorphine HCl/Naloxone HCl [Suboxone 8 mg-2 mg Sl Film] 1 film SL BID 03/02/19 [History] ARIPiprazole [Abilify] 10 mg PO DAILY 30 Days tab 12/27/20 [Rx] Acetaminophen Tab [Tylenol] 650 mg PO Q6HR PRN tab 12/27/20 [Rx] Docusate [Colace] 100 mg PO DAILY 30 Days cap 12/27/20 [Rx] Gabapentin [Neurontin] 600 mg PO TID 14 Days #84 cap 12/27/20 [Rx] Ibuprofen [Motrin] 800 mg PO TID PRN 30 Days tab 12/27/20 [Rx] Lidocaine 5% Patch [Lidoderm 5% Patch] 1 patch TOPICAL DAILY 30 Days patch 12/27/20 [Rx] Loratadine [Claritin] 10 mg PO DAILY 30 Days tab 12/27/20 [Rx] Nicotine 14Mg/24Hr Patch [Habitrol] 1 patch TRANSDERM DAILY 14 Days patch 12/27/20 [Rx] clonazePAM [KlonoPIN] 0.5 mg PO 1400 14 Days #14 tab 12/27/20 [Rx] clonazePAM [KlonoPIN] 0.5 mg PO DAILY 14 Days #14 tab 12/27/20 [Rx] guaiFENesin SYRUP 100MG/5ML [Robitussin] 200 mg PO Q6HR PRN #1 ml 12/27/20 [Rx] traZODone HCL [Desyrel] 150 mg PO HS 30 Days tab 12/27/20 [Rx] Follow up Appointment(s)/Referral(s): Simone Kohler DO [Primary Care Provider] - 1-2 days Activity/Diet/Wound Care/Special Instructions: Activity and diet as tolerated. Avoid the use of street drugs and alcohol. Take all medications as prescribed. When you are in need of refills on your medications please contact your medical provider and/or outpatient psychiatrist to have this done. Please go to scheduled outpatient appointment for aftercare treatment. If symptoms return or become worse, call the crisis line at and/or go to the nearest emergency room for evaluation. Discharge Disposition: HOME SELF-CARE
== END 2020-12-27 13:10 | disposition home or self-care (01) | DRG 885 ==
LOC: EC 22:54 → 3MHU 12-21 08:30
PROVIDERS: ADMIT Psychiatry & Neurology Psychiatry; ATTEND Psychiatry & Neurology Psychiatry
DX: F31.9 Bipolar disorder, unspecified (principal); F11.20 Opioid dependence, uncomplicated; F10.10 Alcohol abuse, uncomplicated; F12.10 Cannabis abuse, uncomplicated; F14.10 Cocaine abuse, uncomplicated; F17.210 Nicotine dependence, cigarettes, uncomplicated; F20.9 Schizophrenia, unspecified; F41.9 Anxiety disorder, unspecified; G47.00 Insomnia, unspecified; J45.909 Unspecified asthma, uncomplicated; K08.89 Other specified disorders of teeth and supporting structures; K59.00 Constipation, unspecified; Z20.822 Contact with and (suspected) exposure to COVID-19; Z79.899 Other long term (current) drug therapy
CPT/HCPCS: 80053; 80061; 80306; 81003; 82075; 83036; 84443; 85025; 87635; 99285